=== PATIENT | male | born 1990 | race Caucasian/White ===

== ENCOUNTER 2021-01-10 15:27 | Emergency (ER) | payer OTHER ==
[~2021-01-10] VITALS: Ht 175.3 cm; Wt 68.0 kg
[~2021-01-10 15:27] MED LIST: KEFLEX500 MG PO; NORCO 5-325 TA1 EACH PO; TYLENOL325 MG PO
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
[2021-01-10] MEDS ORDERED: ACETAMINOPHEN-1 EAC1 PO (16:05)
== END 2021-01-10 16:17 | disposition home or self-care (01) ==
LOC: ED 15:27
DX: T23.102A Burn of first degree of left hand, unspecified site, initial encounter (principal); T23.101A Burn of first degree of right hand, unspecified site, initial encounter; T31.0 Burns involving less than 10% of body surface; X19.XXXA Contact with other heat and hot substances, initial encounter; F17.200 Nicotine dependence, unspecified, uncomplicated; Z91.030 Bee allergy status
CPT/HCPCS: 99283